=== PATIENT | female | born 1955 | race Caucasian/White ===

== ENCOUNTER 2016-11-15 05:29 | Observation (INO) | payer BC ==
[2016-11-08 11:18] VITALS: BMI 31.0
--- NOTE | 2016-11-08 11:49 | PAT Medication Instructions ---
Service Date Nov 08, 2016. Current Home Medication List Acetaminophen (Tylenol), 1,000 MG PO Q6 PRN for Pain Cetirizine (Zyrtec), 10 MG PO HS Clonazepam (Klonopin), 0.5 MG PO DAILY PRN for RESTLESS LEG Estradiol Vag 0.01% (Estrace Vag 0.01% ), 1 APPLN PV WK Fluoxetine (Prozac), 40 MG PO QAM Multivitamin (Multivitamin), 1 TAB PO QAM Pseudoephedrine-Guaifenesin (Mucinex D), 1 TAB PO Q4H PRN for RN [Iron Tabs], 1 TAB PO QAM Medication Instructions For Your Scheduled Surgery - Hold the following medications 24 hours prior to surgery: Estradiol Vag 0.01% (Estrace Vag 0.01% ), 1 APPLN PV WK - Hold the following medications the morning of surgery: [Iron Tabs], 1 TAB PO QAM Pseudoephedrine-Guaifenesin (Mucinex D), 1 TAB PO Q4H PRN for RN Multivitamin (Multivitamin), 1 TAB PO QAM\ - Take the following medications the morning of surgery with a sip of water: Acetaminophen (Tylenol), 1,000 MG PO Q6 PRN for Pain Fluoxetine (Prozac), 40 MG PO QAM Clonazepam (Klonopin), 0.5 MG PO DAILY PRN for RESTLESS LEG - Take the following medications as scheduled the night before surgery: Acetaminophen (Tylenol), 1,000 MG PO Q6 PRN for Pain Pseudoephedrine-Guaifenesin (Mucinex D), 1 TAB PO Q4H PRN for RN Cetirizine (Zyrtec), 10 MG PO HS Clonazepam (Klonopin), 0.5 MG PO DAILY PRN for RESTLESS LEG If you have any questions please call us at [phone] (Lynn Suarez PA-C) or [phone] or [phone]
[2016-11-08 12:10] LABS: BASO % 0.2 %; BASO ABS # 0.01 K/uL (0-0.2); COMPLETE YES; EOS % 2.7 %; HEMATOCRIT 41.2 % (37-47); IG% 0.2 %; LYMPH % 28.1 %; LYMPH ABS # 1.58 K/uL (1.2-3.4); MEAN CELL VOLUME 85.8 fL (80-100); MEAN CORPUSCULAR HEMOGLOBIN 28.5 pg (25-34); MEAN CORPUSCULAR HGB CONC 33.3 g/dl (32-36); MEAN PLATELET VOLUME 8.9 fL (7.4-10.4); NEUT % 57.8 %; PLATELET COUNT 328 K/uL (130-400); WHITE BLOOD COUNT 5.62 K/uL (4.8-10.8)
[2016-11-08 12:46] LABS: BUN/CREATININE RATIO 22.1 (10-20); CALCIUM 8.7 mg/dl (8.5-10.1); CREATININE 0.73 mg/dl (0.60-1.20); POTASSIUM 4.2 mmol/L (3.5-5.1)
[~2016-11-15] VITALS: Ht 167.6 cm; Wt 88.7 kg
[2016-11-15] VITALS (9 sets, daily range): BP systolic 108–137; BP diastolic 62–82; PULSE 71–91; TEMP 36.4–37.1; O2SAT 94–98; Ht 167.6 cm; Wt 88.7 kg
[~2016-11-15 05:29] MED LIST: ACET-1256 PO; CETI10TA84 PO; CLON0.5T3 PO; ESTCR PV; FLUO40CA8 PO; IRON TABS PO; MULT-506 PO; PSEU60TA80 PO
[2016-11-15] MEDS ORDERED: CEFAZOLIN 2000 MG/60 ML D5W IV SCH (06:00)
[2016-11-15] MEDS ORDERED: LACTATED RINGER'S 1000ML 1,000 ML IV SCH ×2 (06:00→10:03)
[2016-11-15] MEDS ORDERED: FENTANYL CITRATE INJ 50 MCG/1 ML 2 ML VIAL ONE (06:29)
[2016-11-15] MEDS ORDERED: CISATRACURIUM BESYLATE IV SOLN 2 MG/ML 10 ML VIAL ONE (06:29)
[2016-11-15] MEDS ORDERED: PROPOFOL IV EMULSION 10 MG/ML 20 ML VIAL IV ONE (06:29)
[2016-11-15] MEDS ORDERED: MIDAZOLAM HCL 1 MG/ML 2ML VIAL ONE (06:29)
[2016-11-15] MEDS ORDERED: ONDANSETRON INJ 2 MG/ML 2 ML VIAL ONE (06:29)
[2016-11-15] MEDS ORDERED: LIDOCAINE HCL 2% 2 ML VIAL (20MG/ML) ONE (06:29)
[2016-11-15] MEDS ORDERED: DEXAMETHASONE SOD INJ 4 MG/ML VIAL ONE (06:29)
--- NOTE | 2016-11-15 07:11 | History & Physical Bridge Note ---
H&P Re-Evaluation Bridge Note: I have examined the patient, reviewed the History & Physical and in the interval since the performance of the History & Physical I have noted the following changes of clinical significance: No changes noted
[2016-11-15] MEDS ORDERED: HYDROmorphone INJ 2 MG/ML SYR/VIAL ONE (08:11)
[2016-11-15] MEDS ORDERED: EpHEDrine SULFATE 50MG/5ML SYR ONE (09:02)
[2016-11-15] MEDS ORDERED: GLYCOPYRROLATE INJ 0.2 MG/ML VIAL ONE (09:29)
[2016-11-15] MEDS ORDERED: NEOSTIGMINE METHYLSULFATE 5 MG/5 ML SYR ONE (09:29)
[2016-11-15] MEDS ORDERED: BUPIVACAINE 0.5 % 5 MG/1 ML MPF 30ML VIAL INJ ONE (09:50)
[2016-11-15] MEDS ORDERED: TISSEEL FIBRIN SEALANT 4ML TOP ONE (09:50)
--- NOTE | 2016-11-15 10:08 | [facility] Post Operative Brief Note ---
Immediate Operative Summary Operative Date Nov 15, 2016. Pre-Operative Diagnosis Cervical stenosis; mild cervical dysplasia; abnormal imaging on ultrasound Post-Operative Diagnosis same Procedure(s) Performed Robotic-assisted total laparoscopic hysterectomy, bilateral salpingo-oopherectomy, cystoscopy Surgeon Dr. Rain Health Editor Surgeon(s) . Estimated Blood Loss 30 cc Findings Dense bladder adhesions, Cervix flush with vagina Specimens A: uterus, cervix, bilateral fallopian tubes and ovaries Drains Love Anesthesia General Complication(s) None Disposition Recovery Room / PACU
[2016-11-15] MEDS ORDERED: OXYC-57 PO (10:09)
--- NOTE | 2016-11-15 10:09 | Discharge Instructions ---
Discharge Instructions Admission Reason for Admission: Cervical Stenosis, Mild Cervical Dysplasia Discharge Discharge Diagnosis / Problem: cervical stenosis Discharge Goals Goal(s): Routine recovery after surgery Activity Recommendations Activity Limitations: per Instructions/Follow-up section . Instructions / Follow-Up Instructions / Follow-Up POST OPERATIVE: BOWEL FUNCTION/MEDICATIONS: 1. Constipation pain and discomfort are the most common complaints 5-7 days after surgery. Points 2-6 address the things that can help. 2. Chewing gum can help stimulate the gut and help improve digestion and motility. 3. Milk of Magnesia 1-2 times per day until return of bowel function. 4. Colace is a stool softener that helps. Taking this 2-3 times per day until bowel function returns to normal is highly recommended. 5. Dulcolax is a laxative that may be used if several days have passed without a bowel movement. Alternatively Miralax may be used daily instead. 6. Drink plenty of fluids as this will also reduce constipation. 7. Narcotic pain medications will be prescribed by your physician. They are safe to use and we encourage you to use them. If you are not allergic, ibuprofen will also be prescribed. Many patients will be able to transition off of the narcotic medications to ibuprofen by postoperative day 3. ACTIVITY RECOMMENDATIONS: 1. Get plenty of rest and listen to your body. If you are tired, take a nap. 2. You may shower, but do not take a tub bath until you see your doctor at the 2 week post operative visit. 3. Absolutely NO intercourse and nothing in the vagina until you are examined by your doctor at the 6 week visit. At that visit it will be determined when such activities can be resumed. This can range from 6-12 weeks after your surgery depending on healing time. 4. The main physical activity in the first week should be walking. By the second week you can slowly increase activity. There are no limits on walking up and down stairs. 5. Do not lift more than 5-10 lbs for 4 weeks. Remember the "one-handed rule", i.e. if you can lift something with only one hand it's likely okay. 6. Minimize header dock like vacuuming and exercising for 4 weeks. "Overdoing it" can lead to incisions not healing, pain and vaginal bleeding , so again, listen to your body. 7. Driving can be resumed when you feel able. Do not drive within 24 hours of taking a narcotic medication. EXPECTATIONS: 1. Vaginal spotting, bleeding and discharge are common after surgery. There may even be an odor to the discharge which is often related to sutures used in the vagina. If you experience heavy vaginal bleeding, call the office number day or night [phone]. 2. Bladder discomfort is common after surgery from the catheter. This usually resolves in 1-2 weeks. 3. By the end of the 3rd or 4th week you should be feeling much better. It may take up to 6 weeks for your energy levels to return to normal. 4. Narcotic medications have side effects such as: dizziness, headache, nausea and/or vomiting. If you suspect your pain medication is causing problems, call our office and we may be able to prescribe an alternate medication. 5. The skin incisions are often covered with a liquid bandage. This will gradually peel off over time. CALL THE OFFICE IF YOU HAVE ANY OF THE FOLLOWIN. Temperature of 101 degrees or higher. 2. Severe abdominal or pelvic pain not relieved by pain medication. 3. Persistent nausea or vomiting. 4. Increased pain with urination or difficulty urinating. 5. Bright red bleeding that soaks more than 1 pad per hour. CONTACT PHONE NUMBERS: Main Office: [phone] Surgical Nurse: [phone] extension [phone] Avoid all tobacco products. If you need help to stop smoking, call [place]'s FREE QUITLINE at . This is a free call. Current Hospital Diet Patient's current hospital diet: Discharge Diet Recommended Diet: Regular Diet Procedures Procedures Performed: Robotic-assisted total laparoscopic hysterectomy, bilateral salpingo-oopherectomy, cystoscopy Pending Studies Studies pending at discharge: no Medical Emergencies . Who to Call and When: Medical Emergencies: If at any time you feel your situation is an emergency, please call 911 immediately. . Non-Emergent Contact Non-Emergency issues call your: Primary Care Provider . . "Provider Documentation" section prepared by Paulie Rain. VTE Core Measure Inpt VTE Proph given/why not?: Bandar Florentino, [facility]'s
[2016-11-15] MEDS ORDERED: EpHEDrine SULFATE INJ 50 MG/ML AMP IV PRN (10:15)
[2016-11-15] MEDS ORDERED: MAGNESIUM HYDROXIDE SUSP 30 ML UDC PO PRN (10:15)
[2016-11-15] MEDS ORDERED: PROMETHAZINE HCL INJ 12.5 MG in SODIUM CHLORIDE 0.9% 50ML 50 ML IV PRN ×2 (10:15)
[2016-11-15] MEDS ORDERED: NALOXONE HCL 0.4 MG/1 ML VIAL/CARP IV PRN (10:15)
[2016-11-15] MEDS ORDERED: SIMETHICONE 80 MG CHEW PO PRN (10:15)
[2016-11-15] MEDS ORDERED: MEPERIDINE HCL 75 MG/ML CARP IV PRN (10:15)
[2016-11-15] MEDS ORDERED: MEPERIDINE HCL 50 MG/ML CARP IV PRN (10:15)
[2016-11-15] MEDS ORDERED: OXYCODONE/ACETAMINOPHEN 5-325 TAB PO PRN (10:15)
[2016-11-15] MEDS ORDERED: BISACODYL 10 MG SUPP PR PRN (10:15)
[2016-11-15] MEDS ORDERED: ACETAMINOPHEN 325 MG TAB PO PRN (10:15)
[2016-11-15] MEDS ORDERED: ZOLPIDEM TARTRATE 5 MG TAB PO PRN (10:15)
[2016-11-15] MEDS ORDERED: FLUMAZENIL 0.1 MG/1 ML 10 ML VIAL IV PRN (10:15)
[2016-11-15] MEDS ORDERED: LABETALOL HCL IV 5 MG/ML 20ML IV PRN (10:15)
[2016-11-15] MEDS ORDERED: ATROPINE SULFATE 0.1 MG/ML 5ML SYR IV PRN (10:15)
[2016-11-15] MEDS ORDERED: PROMETHAZINE HCL INJ 25 MG in SODIUM CHLORIDE 0.9% 50ML 50 ML IV PRN (10:15)
[2016-11-15] MEDS ORDERED: ONDANSETRON INJ 2 MG/ML 2 ML VIAL IV PRN (10:15)
[2016-11-15] MEDS ORDERED: HYDROmorphone INJ 1 MG/ML SYR IV PRN (10:15)
--- NOTE | 2016-11-15 10:58 | Anesthesiology Progress Note ---
Anesthesia Post Op Note Date & Time Nov 15, 2016 at 10:57 Vital Signs Pain Intensity: 0 Vital Signs Past 12 Hours Date Time Temp Pulse Resp B/P Pulse Ox O2 Delivery O2 Flow Rate FiO2 11/15/16 10:45 80 16 91/74 92 Nasal Cannula 3 11/15/16 10:35 81 14 106/80 92 Nasal Cannula 3 11/15/16 10:25 88 14 108/75 94 Mask 10 11/15/16 10:15 36.3 96 14 120/75 94 Mask 10 11/15/16 05:50 37 81 20 116/68 96 Room Air Notes Mental Status: alert / awake / arousable, participated in evaluation Pt Amnestic to Procedure: Yes Nausea / Vomiting: adequately controlled Pain: adequately controlled Airway Patency, RR, SpO2: stable & adequate BP & HR: stable & adequate Hydration State: stable & adequate Anesthetic Complications: no major complications apparent
--- NOTE | 2016-11-15 12:13 | OPERATIVE REPORT ---
DATE OF OPERATION: 11/15/2016 PREOPERATIVE DIAGNOSES: Abnormal imaging on ultrasound, severe cervical stenosis, history of cervical dysplasia. POSTOPERATIVE DIAGNOSES: Same. PROCEDURES: Robotically assisted total laparoscopic hysterectomy, bilateral salpingo-oophorectomy, cystoscopy. SURGEON: Dr. Rain. ESTIMATED BLOOD LOSS: 30 mL. FINDINGS: Dense bladder adhesions. Cervix flushed with vagina. SPECIMENS: Uterus, cervix, bilateral fallopian tubes and ovaries. DRAINS: Love catheter. ANESTHETIC: General. COMPLICATIONS: None. DISPOSITION: Recovery room. DESCRIPTION OF PROCEDURE: Natalie was given a general anesthetic, prepped and draped in dorsal lithotomy position in [facility]. Full timeout had been performed and IV Ancef had been given as preoperative antibiotic. Bladder drained with a Love catheter. We assessed the cervix, it was flushed with the vagina. I was able to actually identify the cervical os and grasp it anterior to this with a tenaculum. I was then able to dilate the cervix and enter the uterine cavity. This was with a #13 dilator and progressed to a #21 dilator. I was able to then place the VCare balloon and it was difficult to sew but I was able to sew the cup in place; however, since the cervix was flushed with the vagina, it was somewhat challenging to get it entirely fit properly over the cervix. This did allow good manipulation of the uterus though. Gloves changed and a supraumbilical incision made with scalpel. Using open Wallace technique, we cut down through subcutaneous fat to the fascia, splitting the rectus muscles and entering the peritoneal cavity. We then placed a blunt-tipped Wallace trocar, air into the balloon and then CO2 gas to insufflate the abdomen. FINDINGS: Upper abdomen normal, no dense abdominal wall adhesions. Deep Trendelenburg position obtained. There were dense bladder adhesions, but none unexpected for 2 prior sections. Adnexa looked normal. Ureters seemed to follow a normal course on both sides. We placed 3 robotic ports, 2 in the right, 1 in the left and left upper quadrant 11 mm bladeless accessory port. Robot then docked. Arm #1 was monopolar misha, arm #2 was bipolar [place] grasper and arm #3 was a ProGrasp. Using the VCare, I could well easily manipulate the uterus. I was able to identify the ureter on the left side, make a window into the broad ligament, and identify the ovarian artery and vein. This was coagulated and then cut. This was then skeletonized. Same process with the round ligament, coagulating and cutting. The bladder flap was dense on the left side, but I was able to start the dissection away from this and find the line of the cervix. Uterine vessels were then identified. I felt I was away from the ureter at this stage. These were then coagulated and cut. Same process on the right side. There were less dense adhesions of the bladder on the right side. I did sharply fully dissect away the bladder adhesions. However, there was a ridge of bladder adhesions that was very firmly adherent anteriorly to the vagina. Initially, I made an incision with the monopolar misha. However, this was initially into the cervix, but I was able to then further identify by removing the ProGrasp and adding a single-tooth tenaculum to the robotic arm #3, able to fully identify the cervix at this stage and then remove the cervix in entirety by making a colpotomy. It should be noted that I had to remove the VCare as it was not providing adequate information with regard to the vaginal plane. So we put a sponge on a stick and identified this. Once the cervix was removed anteriorly, it was easy to follow it around posteriorly and remove the cervix in entirety. Uterus, cervix, ovaries and tubes were then moved into the vagina and removed. Sponge and a glove was then placed to maintain pneumoperitoneum. At this stage, we then gave methylene blue. Instrument exchanges were given. Arm #1 was jignesh needle belly dump driver, arm #2 was cobra grasper. Using a 12-inch 2-0, 90-day V-Loc suture passed through the accessory port, we then closed the cuff. It was somewhat difficult to get entirely super depth bites anteriorly due to the location of the bladder but I tried to incorporate as much vaginal mucosa as possible, starting left to right and then back right to left. I was then able to close the entire cuff. At this stage, we then cut the suture and removed the needle through the accessory port. After generous irrigation and suction, we then decided to perform cystoscopy. Cystoscope revealed a normal bladder. There was no sign of damage, no sutures and both ureters were showing strong jets of blue dye, both left and right ureter openings. Cystoscope removed and a new Love catheter placed. The sponge had been removed from the vagina and bleeding was hemostatic. We then decided to use 4 mL of Tisseel for hemostasis and this was guided robotically. At this stage, hemostasis was excellent. We had irrigated and suctioned prior to the Tisseel. We were able to then remove the robotic instruments under visualization. Robot was undocked and then removed. The patient taken out of Trendelenburg, ports removed, gas allowed to escape. Incisions all injected with 0.5% Marcaine. Fascia closed carefully with the umbilical stitch and with the left upper quadrant stitch. Deep subcutaneous fat stitches as well, 4-0 subcuticular Monocryl closures and Dermabond. Sponge and instrument counts were correct. I attest to the content of the Intraoperative Record and any orders documented therein. Any exceptio ns are noted below.
[2016-11-15] MEDS ORDERED: IV FLUIDS COMPLETED PRN (12:45)
[2016-11-15] MEDS: OXYCODONE/ACETAMINOPHEN 5-325 TAB PO PRN ×2 (19:16→23:58)
[2016-11-15] MEDS: DOCUSATE SODIUM 100 MG CAP PO SCH (21:00)
[2016-11-16 04:00] VITALS: BP 102/65; PULSE 79; TEMP 37.1; O2SAT 92
[2016-11-16] MEDS: OXYCODONE/ACETAMINOPHEN 5-325 TAB PO PRN (07:06)
[2016-11-16 07:08] LABS: BASO % 0.1 %; BASO ABS # 0.01 K/uL (0-0.2); COMPLETE YES; EOS % 0.5 %; HEMATOCRIT 34.5 % (37-47); IG% 0.2 %; LYMPH % 17.6 %; LYMPH ABS # 1.85 K/uL (1.2-3.4); MEAN CELL VOLUME 88.9 fL (80-100); MEAN CORPUSCULAR HEMOGLOBIN 28.9 pg (25-34); MEAN CORPUSCULAR HGB CONC 32.5 g/dl (32-36); MEAN PLATELET VOLUME 9.5 fL (7.4-10.4); MONO % 9.1 %; NEUT % 72.5 %; PLATELET COUNT 290 K/uL (130-400); RED BLOOD COUNT 3.88 M/uL (4.2-5.4); WHITE BLOOD COUNT 10.49 K/uL (4.8-10.8)
[2016-11-16 08:00] VITALS: BP 98/64; PULSE 64; TEMP 36.9; O2SAT 95
[2016-11-16 08:35] VITALS: BP 98/64; PULSE 64; TEMP 36.9; O2SAT 95
[2016-11-16] MEDS: DOCUSATE SODIUM 100 MG CAP PO SCH (09:04)
--- NOTE | 2016-11-18 09:15 | DISCHARGE SUMMARY ---
HISTORY AND HOSPITAL COURSE: Natalie had a total laparoscopic hysterectomy and bilateral salpingo-oophorectomy on the date of 11/15/2016. She was discharged the next day after 23-hour observation. Her course in the hospital was unremarkable. By postop day #1, she met discharge criteria. SUBJECTIVE: The patient was ambulating, tolerating an oral diet. Oral pain medication controlled her pain. She had no extremity pain, was passing flatus, and was ambulating well. PHYSICAL EXAMINATION: VITAL SIGNS: Stable. She was afebrile. CHEST: Exam clear. CARDIOVASCULAR: Normal rate and rhythm. ABDOMEN: Benign and bowel sounds positive. Incisions clean, dry and intact. EXTREMITIES: Negative. IMPRESSION AND PLAN: Postop day #1, hemoglobin 11.2, uncomplicated total laparoscopic hysterectomy. Discharged home with routine discharge instructions and appropriate pain medication. Told to follow up in the office with any further concerns.
== END 2016-11-16 09:10 | disposition home or self-care (01) ==
LOC: ENRESERVTM → ENRESERVDT → C.ACU 05:29 → C.MS4N 07:03
PROVIDERS: ADMIT Obstetrics & Gynecology; ATTEND Obstetrics & Gynecology
DX: N88.2 Stricture and stenosis of cervix uteri (principal); D25.9 Leiomyoma of uterus, unspecified; N87.0 Mild cervical dysplasia; K66.0 Peritoneal adhesions (postprocedural) (postinfection)
CPT/HCPCS: 58571; S2900

== ENCOUNTER → 2017-04-24 | Outpatient (CLI) | payer BC ==
[~2017-04-24] MED LIST changes: +OXYC-57 PO
--- NOTE | 2017-04-25 12:10 | MAMMOGRAPHY REPORT ---
BILATERAL DIGITAL SCREENING MAMMOGRAM WITH CAD: 04/24/2017 CLINICAL HISTORY: Routine screening. TECHNIQUE: Current study was also evaluated with a Computer Aided Detection (CAD) system. Bilateral CC and MLO views were obtained. COMPARISON: Comparison is made to exams dated: 04/04/2016 mammogram, 02/20/2015 mammogram, 01/05/2014 ma mmogram, 11/19/2012 mammogram, 10/29/2011 mammogram, and 10/09/2010 mammogram - [facility] nter. BREAST COMPOSITION: There are scattered areas of fibroglandular density in both breasts. FINDINGS: No suspicious masses, calcifications, or areas of architectural distortion are noted in ei ther breast. There has been no significant interval change compared to prior exams. IMPRESSION: ACR BI-RADS CATEGORY 1: NEGATIVE There is no mammographic evidence of malignancy. A 1 year screening mammogram is recommended. The pa tient will receive written notification of the results. Approximately 10% of breast cancers are not detected with mammography. A negative mammographic report should not delay biopsy if a clinically suggestive mass is present. Fadia Perea M.D. ah/:04/24/2017 14:48:47 Tapper Bit: Angel DUNLAP(R)(M), [facility] letter sent: Normal 1/2 BI-RADS Code: ACR BI-RADS Category 1: Negative
== END | disposition home or self-care (01) ==
LOC: C.MAMM 13:56
PROVIDERS: ATTEND Obstetrics & Gynecology
DX: Z12.31 Encounter for screening mammogram for malignant neoplasm of breast (principal)

== ENCOUNTER → 2017-04-30 | Outpatient (CLI) | payer BC | END | disposition home or self-care (01) | LOC: C.PAPS 10:27 | PROVIDERS: ATTEND Obstetrics & Gynecology | DX: Z01.419 Encounter for gynecological examination (general) (routine) without abnormal findings (principal); Z11.51 Encounter for screening for human papillomavirus (HPV); N87.0 Mild cervical dysplasia ==

== ENCOUNTER → 2017-08-14 | Outpatient (CLI) | payer BC ==
--- NOTE | 2017-08-14 12:04 | DIAGNOSTIC IMAGING REPORT ---
BILIARY ULTRASOUND CLINICAL HISTORY: ABD PAIN COMPARISON STUDY: No previous studies for comparison. FINDINGS: The pancreas appear normal as visualized. There is slightly coarsened hepatic echotexture without evidence of focal mass. There is no right-sided hydronephrosis. There is no ductal dilatation. The common bile duct measured 4 mm. The gallbladder. Sonographically normal. IMPRESSION: Heterogeneous hepatic echotexture. No focal masses. No ductal dilatation. No gallstones identified. Electronically signed by: Carlos Whitt M.D. 08/14/2017 12:02 PM Dictated Date/Time: 08/14/2017 12:02 PM
== END | disposition home or self-care (01) ==
LOC: C.ULTRBC 11:00
PROVIDERS: ATTEND Family Medicine
DX: R10.9 Unspecified abdominal pain (principal)

== ENCOUNTER → 2018-06-10 | Outpatient (CLI) | payer OTHER ==
[~2018-06-10] MED LIST changes: -CLON0.5T3 PO; +KLN/5 PO
--- NOTE | 2018-06-11 15:41 | MAMMOGRAPHY REPORT ---
BILATERAL DIGITAL SCREENING MAMMOGRAM TOMOSYNTHESIS WITH CAD: 06/10/2018 CLINICAL HISTORY: Routine screening. Patient has no complaints. TECHNIQUE: The study was acquired using full field digital technology and interpreted from soft copy. Breast tomosynthesis in addition to standard 2D mammography was performed. Current study was also ev aluated with a Computer Aided Detection (CAD) system. COMPARISON: Comparison is made to exams dated: 04/24/2017 mammogram, 04/04/2016 mammogram, 02/20/2015 ma mmogram, 01/05/2014 mammogram, 11/19/2012 mammogram, and 10/29/2011 mammogram - [facility] ter. BREAST COMPOSITION: There are scattered areas of fibroglandular density in both breasts. FINDINGS: There is stable asymmetry in the medial right breast on the CC view. No suspicious mass, ar chitectural distortion or cluster of microcalcifications is seen. IMPRESSION: ACR BI-RADS CATEGORY 1: NEGATIVE There is no mammographic evidence of malignancy. A 1 year screening mammogram is recommended.( 019) The patient will receive written notification of the results. Some breast cancers are not detected with mammography. A negative mammographic report should not dl y biopsy if a clinically suggestive mass is present. Maria Guadalupe Ureña M.D. ay/:06/10/2018 16:20:42 Production Planning Manager: RT Divya(Regina)(M)(BD), [facility] letter sent: Normal 1/2 BI-RADS Code: ACR BI-RADS Category 1: Negative
== END | disposition home or self-care (01) ==
LOC: C.MAMM 13:47
PROVIDERS: ATTEND Obstetrics & Gynecology
DX: Z12.31 Encounter for screening mammogram for malignant neoplasm of breast (principal)

== ENCOUNTER 2022-10-31 09:49 | Observation (INO) ==
--- NOTE | 2022-10-25 12:14 | Anesthesiology Consultation ---
Date of Service October 25, 2022 Assessment & Plan (1) Encounter for pre-operative examination: - COVID screening: Per axle bearing polisher on 10/25/2022: Travel screen negative, no known COVID-19 positive contacts or current COVID-19 related symptoms in past 2 weeks. To surgeon's discretion if COVID testing is needed. Chart Review Chart Review: Acceptable Risk for Surgery and Patient NOT seen in Pre Admission Testing History Surgery Operation Date: 10/31/22 08:15 Proposed Procedures p Laparoscopic Repair Hiatal Hernia - Bonilla Pablo, Height/Weight Height: 5 ft 6.5 in Weight: 74.843 kg Allergies Allergy/AdvReac Type Severity Reaction Status Date / Time aspirin AdvReac Mild SEVERE Verified 10/23/22 10:10 BLEEDING Medications Home Medications Medication Instructions Recorded Confirmed Last Taken clonazepam 1 mg tablet (Klonopin) 1 mg PO HS PRN Anxiety 10/16/18 10/23/22 07/25/21 23:00 diphenhydramine HCl 25 mg capsule 25 mg PO HS PRN Allergy Symptoms 10/16/18 10/23/22 07/23/21 (Benadryl) paroxetine HCl 40 mg tablet 40 mg PO QAM 10/16/18 10/23/22 07/04/22 Past Medical History Medical History Anemia Anxiety Asthma MILD-does not use inh Cardiac murmur HX Depression GERD (gastroesophageal reflux disease) Hiatal hernia History of COVID-19 05/01/22 > pre surgical test at [place], +, pt never had symptoms Iron deficiency anemia Temporomandibular joint disorder RIGHT SIDE POPS-NO LOCKING Tremor HX HANDS-PT WAS TOLD MEDICATION RELATED Past Family History Family History Mother Brain cancer Stroke Father Hypertension Multiple myeloma Stroke Other Cancer Heart disease No family history of adverse response to anesthesia Denies family history of Ovarian cancer Breast cancer Colorectal cancer Past Surgical History Surgical History (Updated 10/25/22 @ 12:46 by Daisha Vora PA-C) H/O LEEP H/O right inguinal hernia repair (07/05/22) LMA 4. History of adenoidectomy History of bilateral tubal ligation History of breast biopsy BENIGN History of cataract surgery 11/03/2018. 4mg versed. no issues. History of section x 2 History of colonoscopy History of dilatation and curettage History of esophagogastroduodenoscopy (EGD) History of foot surgery LT.. 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 Pablo 07/26/2021 Grade 2 view, MAC 3, ETT 7.5. Social History Smoking Status: Never smoker Do You Dip or Chew Tobacco: No Hx Alcohol Use: Yes Alcohol type: beer alcohol intake frequency: a few times a week Hx Substance Use: No substance use type: does not use Lab Results Anesthesia Preop Results Results Anesthesia Widget: WBC 4.46 K/ul (4.8-10.8) L 10/25/22 Hgb 13.5 g/dl (12.0-16.0) 10/25/22 Hct 40.6 % (34.1-44.9) 10/25/22 Plt 312 K/uL (130-400) 10/25/22 Na 136 mmol/L (136-145) 10/25/22 K 4.3 mmol/L (3.5-5.1) 10/25/22 Cl 105 mmol/L (98-107) 10/25/22 CO2 27 mmol/L (21-32) 10/25/22 BUN 17 mg/dl (6-23) 10/25/22 Creat 0.79 mg/dl (0.6-1.2) 10/25/22 Glucose Level 92 mg/dl (70-99(Fasting)) 10/25/22 Testing Electrocardiogram Date: 10/25/22 NSR, rate 63 bpm
--- NOTE | 2022-10-31 07:54 | History & Physical Report ---
Date of Service October 31, 2022 Assessment & Plan (1) Hiatal hernia: Plan: We discussed her options and potential risks with repairing the hiatal hernia multiple times. We have discussed bleeding infection injury to another organ such as spleen stomach diaphragm etc. We have discussed potential for pneumothorax DVT PE TN etc. We also discussed dietary changes for the first few months following surgery. I have answered her questions. We will proceed today with laparoscopic hiatal hernia repair. History of Present Illness Primary Care Provider: DO Natalie Trinh is here for repair of her hiatal hernia. She really does not have acid reflux symptoms but dysphagia from what appears to be a mechanical issue. Is been no changes to her health history since I seen her last in the office. Allergies Allergy/AdvReac Type Severity Reaction Status Date / Time aspirin AdvReac Mild SEVERE Verified 10/23/22 10:10 BLEEDING Home Medications Medication Instructions Recorded Confirmed Type clonazepam 1 mg tablet (Klonopin) 1 mg PO HS PRN Anxiety 10/16/18 10/23/22 History diphenhydramine HCl 25 mg capsule 25 mg PO HS PRN Allergy Symptoms 10/16/18 10/23/22 History (Benadryl) paroxetine HCl 40 mg tablet 40 mg PO QAM 10/16/18 10/23/22 History Past Med/Surg History Medical History Anemia Anxiety Asthma MILD-does not use inh Cardiac murmur HX Depression GERD (gastroesophageal reflux disease) Hiatal hernia History of COVID-19 05/01/22 > pre surgical test at [facility], +, pt never had symptoms Iron deficiency anemia Temporomandibular joint disorder RIGHT SIDE POPS-NO LOCKING Tremor HX HANDS-PT WAS TOLD MEDICATION RELATED Surgical History (Updated 10/25/22 @ 12:46 by Daisha Vora PA-C) H/O LEEP H/O right inguinal hernia repair (07/05/22) LMA 4. History of adenoidectomy History of bilateral tubal ligation History of breast biopsy BENIGN History of cataract surgery 11/03/2018. 4mg versed. no issues. History of section x 2 History of colonoscopy History of dilatation and curettage History of esophagogastroduodenoscopy (EGD) History of foot surgery LT.. 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 Pablo 07/26/2021 Grade 2 view, MAC 3, ETT 7.5. Family History Mother Brain cancer Stroke Father Hypertension Multiple myeloma Stroke Other Cancer Heart disease No family history of adverse response to anesthesia Denies family history of Ovarian cancer Breast cancer Colorectal cancer Social History Smoking Status: Never smoker Second Hand Exposure: No; Hx Alcohol Use: Yes Alcohol type: beer Alcohol Intake Frequency: 2-4 x/Month Alcohol Intake Frequency Comment: 10/week Hx Substance Use: No Preferred Language: Irish Communication Ability: Effective Mandarin Speaking Nanny Required: No Beliefs That Will Affect Care: None marital status: Current Living Situation: Spouse current occupational status: retired current occupation: How many Children do You have: 3 Feels Safe at Home: Yes Assistive Devices: Glasses Review of Systems All systems reviewed & are unremarkable except as noted in HPI & below Physical Exam Constitutional: WD/WN, vitals as above no acute distress and not ill appearing Eyes: PERRL, conjunctivae normal, anicteric sclerae EOM intact bilaterally ENMT: external ear and nose normal, oropharynx normal Ears: no hearing impairment Neck: trachea midline, no thyromegaly Respiratory: normal respiratory effort; no respiratory distress and does not use accessory muscles Cardiovascular: Rate/Rhythm: regular rate and regular rhythm Gastrointestinal (Abdomen): normal bowel sounds, soft, nontender, no hepatosplenomegaly Skin: no rashes, warm and dry Psychiatric: Orientation: alert, oriented x 3 and cooperative
[~2022-10-31 09:49] MED LIST changes: -ACET-1256 PO; -CETI10TA84 PO; -ESTCR PV; -FLUO40CA8 PO; -IRON TABS PO; -KLN/5 PO; +LR 15ML/HR IV SCH; -MULT-506 PO; -OXYC-57 PO; -PSEU60TA80 PO; +ceFAZolin 2000MG 2,000 MG/15 ML SYR IV SCH
[2022-10-31] MEDS ORDERED: LIDOCAINE 2% MPF LOCAL 5 ML VIAL INFIL ONE (11:47)
[2022-10-31] MEDS ORDERED: fentaNYL citrate 100 MCG/2 ML VIAL ONE ×2 (11:47→13:06)
[2022-10-31] MEDS ORDERED: MIDAZOLAM HCL 1 MG/ML 2ML VIAL ONE (11:47)
[2022-10-31] MEDS ORDERED: ROCURONIUM BROMIDE 10 MG/ML 5 ML VIAL IV ONE (11:47)
[2022-10-31] MEDS ORDERED: GLYCOPYRROLATE 0.2 MG/ML VIAL ONE ×2 (11:47→14:42)
[2022-10-31] MEDS ORDERED: PROPOFOL IV EMULSION 10 MG/ML 20 ML VIAL IV ONE ×2 (11:47→14:42)
[2022-10-31] MEDS ORDERED: NEOSTIGMINE METHYLSULFATE 1 MG/ML 10ML VIAL ONE (11:47)
[2022-10-31] MEDS ORDERED: ATROPINE SULFATE 0.1 MG/ML 10ML SYR IV PRN (12:10)
[2022-10-31] MEDS ORDERED: ONDANSETRON INJ 2 MG/ML 2 ML VIAL IV PRN ×2 (12:10→15:49)
[2022-10-31] MEDS ORDERED: ePHEDrine sulfate 50 MG/ML AMP IV PRN (12:10)
[2022-10-31] MEDS ORDERED: BUPIVACAINE/EPINEPHRINE 0.5% MPF 1:200,000 30 ML VIAL ONE (12:31)
[2022-10-31] MEDS ORDERED: ACETAMINOPHEN 1000 MG/100 ML IV IV ONE ×2 (13:55→20:47)
--- NOTE | 2022-10-31 14:30 | Operative Report ---
PG Post Operative Report Pre & Post Diagnosis Operation Date: 10/31/22 11:35 Pre-Op Diagnosis: Hiatal Hernia Post-Op Diagnosis: Hiatal Hernia;partial gastric volvulus I identified the patient and participated in the time-out.: Yes Procedure Operation Date: 10/31/22 11:35 Actual Procedures p Laparoscopic Repair Hiatal Hernia(Not Applicable);gastropexy - Bonilla Pablo DO Surgeon Bonilla Pablo DO Outcomes Manager roger Jin Estimated Blood Loss 25 Findings Consistent with Post-Op Diagnosis Specimens none Description of Procedure After informed consent was obtained the patient was taken to the operating room and placed in supine position. After successful intubation the abdomen was sterilely prepped and draped in usual fashion. A supraumbilical incision was made with an 11 blade scalpel and carried down through the soft tissue using cautery. The anterior fascia was opened using cautery and two #0 Vicryl stay sutures were placed. Peritoneum was elevated with hemostats and incised under direct vision using Metzenbaum scissor. A finger sweep was performed. 12 mm Mccartney trocar was placed and the abdomen was insufflated to 18 mmHg. A subxiphoid 12 mm port a right upper quadrant 5 mm port a right flank 5 mm port in the left flank 5 mm port were all placed under direct vision. The patient was placed in reverse Trendelenburg position. Anesthesia was unable to get a nasogastic tube to pass. We began by using a liver retractor to elevate the left lobe of the liver. This retractor was secured to the table throughout the procedure. Once we elevated the liver there was a large hernia defect with about 90% of the stomach incarcerated within it. The anatomy was initially difficult to figure out because the stomach was partially volvulized. I began by starting on the lateral side along the left crura of the diaphragm and using the harmonic scalpel took down the hernia sac. We repeated this maneuver on the medial side by coming up along the right crura of the diaphragm. We had to take down several of the short gastric vessels as well. Eventually we were able to untwist the stomach and reduce it. Once we did this anesthesia was then able to pass a 50 Tamazight bougie into the stomach to help me identify the esophagus. We continued to take down the hernia sac in 360 degrees. Once we did this I did create a retrogastric window and then attempted to close the defect posteriorly. However the left crura of the diaphragm had thinned out to the point of where it was unable to safely hold sutures. I therefore closed the defect entirely on the anterior side. This was done using an Endo Stitch device with 0 Surgidac. Once we had the defect completely closed I performed a gastropexy. I secured the body of the stomach to the right jai of the diaphragm and I also secured a portion of the cardia of the stomach to the left crura of the diaphragm. There was adequate hemostasis once this was accomplished. A look around the abdomen showed no other gross abnormalities. The bougie was removed. The abdomen was desufflated and the trochars were removed. The fascia of the camera port was closed using 0 Vicryl in a [id number] fashion. All the wounds were irrigated and closed using 4-0 Monocryl. Marcaine with epinephrine was injected around the for postoperative analgesia and skin glue used as a dressing. The patient was awakened extubated and transferred recovery in stable condition. My physician phlebotomist lab assistant was present for the entire case was instrumental in tressa broderick by running the camera providing exposure throughout my dissection and repair as well as assisting with wound closure and dressing placement. I attest to the content of the Intraoperative Record and any orders documented therein. Any exceptions are noted below.
[2022-10-31] MEDS ORDERED: ONDANSETRON INJ 2 MG/ML 2 ML VIAL ONE (14:47)
[2022-10-31] MEDS: fentaNYL citrate 100 MCG/2 ML VIAL IV PRN ×4 (15:15→15:30)
--- NOTE | 2022-10-31 15:37 | Anesthesiology Progress Note ---
Date of Service October 31, 2022 Anesthesia Post Procedure Vital Signs Vital Signs: Temp Pulse Pulse Resp BP Pulse Ox O2 Del Method 10/31/22 15:30 77 12 127/69 94 Nasal Cannula 10/31/22 15:20 97.5 F L 66 10 L 127/64 94 Nasal Cannula 10/31/22 15:10 67 12 92/74 L 94 Nasal Cannula 10/31/22 15:00 70 14 132/84 95 Oxymask 10/31/22 14:50 67 16 126/54 L 95 Oxymask 10/31/22 14:40 70 7 L 119/61 95 Oxymask 10/31/22 14:31 97.5 F L 72 14 119/58 L 97 Oxymask 10/31/22 10:19 98.2 F 66 20 154/82 H 93 Room Air O2 Flow Rate 10/31/22 15:30 3 10/31/22 15:20 3 10/31/22 15:10 3 10/31/22 15:00 3 10/31/22 14:50 4 10/31/22 14:40 5 10/31/22 14:31 7 10/31/22 10:19 Pain Intensity Abdomen: Pain Intensity: 6 Transfer of Care Handoff Completed per policy Notes Mental Status: alert / awake / arousable and participated in evaluation Patient Amnestic to Procedure: Yes Nausea / Vomiting: adequately controlled Pain: adequately controlled Airway Patency, RR, SpO2: stable & adequate BP & HR: stable & adequate Hydration State: stable & adequate Anesthetic Complications: no major complications apparent and Pt Satisfied with anesthetic care
[2022-10-31] MEDS ORDERED: clonazePAM 1 MG TAB PO PRN (15:49)
[2022-10-31] MEDS ORDERED: diphenhydrAMINE Capsule 25 MG CAP PO PRN (15:49)
[2022-10-31] MEDS ORDERED: oxyCODONE HCL IR 5 MG TAB (IMMEDIATE RELEASE) PO PRN (15:49)
[2022-10-31] MEDS ORDERED: PROMETHAZINE HCL 25 MG in SODIUM CHLORIDE 0.9% 50 ML IV PRN (15:49)
[2022-10-31] MEDS ORDERED: MoRPHine SULFATE 4 MG/ML 1 ML CARP\\VIAL IV PRN (15:49)
[2022-10-31] MEDS: LACTATED RINGER'S 1,000 ML IV SCH ×2 (17:54→20:53)
[2022-10-31] MEDS: MoRPHine SULFATE 2 MG/ML CARP IV PRN ×2 (17:58→21:01)
[2022-10-31] MEDS: ACETAMINOPHEN 1,000 MG/100 ML VIAL IV SCH (20:52)
[2022-11-01] MEDS: MoRPHine SULFATE 2 MG/ML CARP IV PRN (03:06)
[2022-11-01] MEDS: ACETAMINOPHEN 1,000 MG/100 ML VIAL IV SCH ×2 (05:49→11:34)
[2022-11-01] MEDS: LACTATED RINGER'S 1,000 ML IV SCH (05:54)
[2022-11-01 06:23] LABS: Basophils # (auto) 0.01 K/uL (0-0.2); Basophils % (auto) 0.1 %; Eosinophils # (auto) 0.01 K/uL (0-0.50); Eosinophils % (auto) 0.1 %; Hematocrit (blood only) 36.5 % (34.1-44.9); Hemoglobin 12.4 g/dl (12.0-16.0); Immature Granulocytes # (auto) 0.04 K/uL (0.00-0.02); Immature Granulocytes % (auto) 0.4 %; Lymphocytes % (auto) 10.1 %; Mean Corpuscular Hemoglobin 30.5 pg (25.0-34.0); Mean Corpuscular Volume 89.7 fL (80.0-100.0); Mean Platelet Volume 9.1 fL (9.4-12.3); Monocytes # (auto) 0.97 K/uL (0.24-0.82); Monocytes % (auto) 9.8 %; Neutrophils # (auto) 7.85 K/uL (1.4-6.5); Neutrophils % (auto) 79.5 %; Platelet Count 290 K/uL (130-400); RDW Coefficient of Variation 11.9 % (11.5-14.5); RDW Standard Deviation 38.7 fL (36.4-46.3); Red Blood Count 4.07 M/uL (3.93-5.22); White Blood Count 9.88 K/ul (4.8-10.8)
[2022-11-01 06:48] LABS: BUN Creatinine Ratio 16.9 (10-20); Calcium 8.4 mg/dl (8.5-10.1); Creatinine Clr Calc Pharmacy 87.9 ml/min; Est GFR (African American) 105.7 ml/min; Est GFR (Non-African American) 91.2 ml/min; Potassium 4.5 mmol/L (3.5-5.1)
--- NOTE | 2022-11-01 08:15 | Surgery Progress Note ---
Date of Service November 01, 2022 Assessment & Plan (1) Hiatal hernia: Plan: POD#1 laparoscopic hiatal hernia repair with gastropexy WBC 9.8, Hbg 12.4. Vitals stable, on some supplemental O2- will try to wean off Patient tolerating clears, dispo diet instructions reviewed Will see how she fairs after breakfast, if does well anticipate discharge to home later today vs. gil Pt seen/examined with Dr. Pablo. F/u in clinic within 7-10 days If remains here [facility] surgery covering the weekend As above. Doing as expected. So far tolerating liquids. Will reevaluate later for possible discharge. Admission and Anticipated Discharge Date Admission Date: October 31, 2022 Subjective Patient overall doing well. Tolerating clear liquids without nausea/vomiting. Having some expected abdominal discomfort, but is manageable. Physical Exam Physical Exam: awake/alert, no distress Gastrointestinal (Abdomen): Inspection/Auscultation: + abdominal surgical incision (c/d/i with skin glue) Percussion/Palpation: + abdomen tender (expected abelardo incisional discomfort to palpation ) and abdomen soft Results & Data ([facility]) Vital Signs (Past 12 Hours) Vital Signs Temp Pulse Resp BP Pulse Ox O2 Del Method O2 Flow Rate 11/01/22 07:44 36.7 C 65 16 112/64 96 Nasal Cannula 2 11/01/22 03:00 36.8 C 63 18 148/65 H 94 Nasal Cannula 2 10/31/22 21:00 Nasal Cannula 2 10/31/22 23:19 36.8 C 84 16 126/77 94 Room Air PG Care Time/CCT Total # of Minutes Spent Total Time Spent with Patient: Total time spent is greater than 50% in coordination of care (as documented) at patient's floor/unit and/or counseling patient: Coding Level of Care Code None Diagnoses Hiatal hernia K44.9
[2022-11-01] MEDS ORDERED: PARoxetine HCL 20 MG TAB PO SCH (09:00)
[2022-11-01] MEDS: oxyCODONE HCL IR 5 MG TAB (IMMEDIATE RELEASE) PO PRN ×2 (10:29→13:31)
--- NOTE | 2022-11-01 10:55 | Discharge Summary ---
Date of Service November 01, 2022 Admission HPI Per Admitting Provider Natalie is here for repair of her hiatal hernia. She really does not have acid reflux symptoms but dysphagia from what appears to be a mechanical issue. Is been no changes to her health history since I seen her last in the office. Principal Diagnosis hiatal hernia Discharge Exam awake/alert, no distress Gastrointestinal (Abdomen) Inspection/Auscultation: + abdominal surgical incision (c/d/i with skin glue; some abelardo incisional ecchymosis noted) Percussion/Palpation: + abdomen tender (expected abelardo incisional discomfort to palpation ) and abdomen soft Discharge Data Allergies Allergy/AdvReac Type Severity Reaction Status Date / Time aspirin AdvReac Mild SEVERE Verified 10/31/22 10:15 BLEEDING Procedures Performed Operation Date: 10/31/22 11:35 Actual Procedures p Laparoscopic Repair Hiatal Hernia(Not Applicable) - Bonilla Pablo, DO Hospital Course (1) Hiatal hernia: This is a 67yF with a PMH of hiatal hernia who presented to the [facility] on 10/31/22 for elective repair. She ultimately underwent a laparoscopic hiatal hernia repair with gastropexy, performed by Dr. Pablo. The patient tolerated the procedure well, see op note for full details. The patient was transferred to the med/surg unit in stable condition for overnight observation. She was given a clear liquid diet of which she tolerated without nausea/vomiting. Expected post surgical pain present, but manageable on prn pain medication regimen. She was voiding without issues. On POD#1 she was deemed stable for discharge to home. Incisions c/d/i. Pain controlled. Liquid diet tolerated and she was provided instructions regarding continuing on a liquid diet until her follow up appointment. Patient to been seen in clinic with Dr. Pablo within 1 week's time. Total Time Total Time Spent Total Time Spent (In Minutes): 15 Discharge Plan Discharge Items Patient Disposition: Home - Self-Care Reason For Visit: Hiatal Hernia Discharge Diagnosis: hiatal hernia repair Activity: Per Instructions section Lifting: No more than 10 pounds Bathing Comment: may shower; no soaking in tubs/pools Exercise/Sports: Wait until after follow-up appointment Driving/Machine Use: wait until cleared by surgeon and pain free. no driving while on narcotics Non-emergency contact: Surgeon Call non-emergency contact if: you have any medication questions, your symptoms worsen, your pain is not controlled, your pain is concerning for you, you have a fever, your temperature is above 101.5, your wound has increased redness, your wound has increased drainage and your wound pain has increased Follow-up/Referrals: Bonilla Pablo, [Surgeon] - (Please call to schedule follow up in clinic within 1 week) Daphney Snyder DO [Primary Care Provider] - Diet: Other - See Diet Comment Addtl Attending Provider Instructions: diet as previously discussed with Dr. Pablo. softy/liquidy foods, things you can scoop through with a spoon Pending Studies at Discharge: No Stand-Alone Forms: My [facility] Medications and DC Order Prescriptions: New oxycodone-acetaminophen [Percocet] 5-325 mg tablet 1 - 2 tab PO .q4-6h PRN (Reason: pain, for initial therapy, max 6 tabs per day) Qty: 15 0RF ondansetron 4 mg tablet,disintegrating 4 mg PO Q8H PRN (Reason: nausea and vomiting) Qty: 20 0RF Continued clonazepam [Klonopin] 1 mg Tablet 1 mg PO HS PRN (Reason: Anxiety) diphenhydramine HCl [Benadryl] 25 mg Capsule 25 mg PO HS PRN (Reason: Allergy Symptoms) paroxetine HCl 40 mg Tablet 40 mg PO QAM Discharge Orders: Discharge Order (Routine); Ordered 11/01/22 Ordered By: Cass Jin Admission Data Admit Date/Time: 10/31/22 14:32 Attending Provider: Bonilla Pablo Admit Provider: Bonilla Pablo Primary Care Provider: Daphney Snyder Coding Level of Care Code HOSP INP/OBS DISCH 30 MIN/LESS Diagnoses Hiatal hernia K44.9
== END 2022-11-01 14:07 | disposition home or self-care (01) ==
LOC: ASU 09:49 → PACUINP 09:49 → 3N 17:29